=== PATIENT | female | born 1950 | race Caucasian/White ===

== ENCOUNTER 2016-07-17 12:06 | Emergency (ER) | payer MEDICARE, OTHER, SELFPAY ==
[~2016-07-17 12:06] MED LIST: LEVAQUIN750 MG PO; MS CONTIN30 MG PO; NEURONTIN300 MG PO; PREDNISONE10 MG PO; PRILOSEC20 MG PO; SPIRIVA 185 PUFFS/IN INH; SYMBICORT 80-10.2 GM INH; THEOPHYLLINE 3300 MG PO; VENTOLIN HFA IN18 GM INH; VICODIN 10/3251 EACH PO
[2016-07-17 13:58] LABS: BASOPHIL 0.2 % (0-2); EOSINOPHIL 0.7 % (0-7); HCT 38.2 % (37.0-47.0); HGB 13.1 g/dl (12.5-16.0); LYMPHOCYTE 11.3 % (15-48); MCHC 34.3 g/dL (32.0-36.0); MCV 84.5 fL (78.0-100.0); MPV 9.8 fL (6.0-9.5); NEUTROPHIL 78.8 % (41-80); PLT 286 K/uL (150-400); RBC 4.52 M/uL (4.20-5.40); RDW 14.3 % (11.5-14.0)
[2016-07-17 14:00] LABS: WBC 12.7 K/uL (4.0-10.5)
[2016-07-17 14:58] LABS: ALBUMIN 3.7 g/dL (3.4-4.8); BILIRUBIN - TOTAL 0.7 mg/dL (0.1-1.0); CREATININE 0.9 mg/dL (0.5-1.0); GLOBULIN (CALCULATION) 2.7 g/dL (2.2-4.2); POTASSIUM 2.6 mmol/L (3.5-5.1); TOTAL PROTEIN 6.4 g/dL (6.4-8.3)
== END 2016-07-17 16:21 | disposition home or self-care (01) ==
LOC: FER 12:06
PROVIDERS: Emergency Medicine
DX: S62.394A Other fracture of fourth metacarpal bone, right hand, initial encounter for closed fracture (principal); S20.211A Contusion of right front wall of thorax, initial encounter; S00.83XA Contusion of other part of head, initial encounter; E11.65 Type 2 diabetes mellitus with hyperglycemia; E87.6 Hypokalemia; I11.9 Hypertensive heart disease without heart failure; J45.909 Unspecified asthma, uncomplicated; W01.0XXA Fall on same level from slipping, tripping and stumbling without subsequent striking against object, initial encounter; Y92.149 Unspecified place in prison as the place of occurrence of the external cause
CPT/HCPCS: 36415; 70450; 71101; 73130; 80053; 84484; 85025; 93005

== ENCOUNTER 2016-08-11 14:55 | Emergency (ER) | payer MEDICARE, SELFPAY ==
[2016-08-11 15:59] LABS: ALBUMIN 3.8 g/dL (3.4-4.8); BILIRUBIN - TOTAL 0.3 mg/dL (0.1-1.0); CREATININE 0.8 mg/dL (0.5-1.0); GLOBULIN (CALCULATION) 2.6 g/dL (2.2-4.2); TOTAL PROTEIN 6.4 g/dL (6.4-8.3)
[2016-08-11 16:01] LABS: BASOPHIL 0.3 % (0-2); EOSINOPHIL 6.7 % (0-7); HCT 45.8 % (37.0-47.0); HGB 15.1 g/dl (12.5-16.0); LYMPHOCYTE 33.2 % (15-48); MCH 28.2 pg (25.0-31.0); MCV 85.4 fL (78.0-100.0); MONOCYTE 12.8 % (0-12); MPV 9.8 fL (6.0-9.5); PLT 286 K/uL (150-400); RBC 5.36 M/uL (4.20-5.40); RDW 13.8 % (11.5-14.0); WBC 6.4 K/uL (4.0-10.5)
== END 2016-08-11 20:37 | disposition home or self-care (01) ==
LOC: FER 14:55
PROVIDERS: Internal Medicine
DX: J44.1 Chronic obstructive pulmonary disease with (acute) exacerbation (principal); E11.9 Type 2 diabetes mellitus without complications; K21.9 Gastro-esophageal reflux disease without esophagitis; F17.200 Nicotine dependence, unspecified, uncomplicated; Z79.84 Long term (current) use of oral hypoglycemic drugs; Z79.899 Other long term (current) drug therapy
CPT/HCPCS: 36415; 36600; 71010; 80053; 82803; 84484; 85025; 93005; J1885; J2405; J2930; Q9967